=== PATIENT | female | born 1935 | race Caucasian/White ===

== ENCOUNTER → 2018-03-08 12:12 | Outpatient (CLI) | payer MEDICARE, SELFPAY ==
--- NOTE | 2018-03-08 12:30 | DI.US.S_ITS ---
PROCEDURE: US ABDOMEN COMPLETE INDICATIONS: CHANGE OF BOWEL HABITS, HISTORY OF RENAL CANCER TECHNIQUE: Real-time scanning was performed of the abdominal and retroperitoneal organs, with image documentation. COMPARISON: [facility], US, ABDOMEN COMPLETE, 12/14/2009, 9:28. [facility], US, ABDOMEN COMPLETE, 10/07/2016, 8:40. FINDINGS: Liver: Liver is normal in size and homogeneous in echotexture. 7 x 9 x 10 mm cyst in the left lobe is unchanged. Gallbladder: Gallbladder is surgically absent. Biliary ducts: Intrahepatic bile ducts are non-dilated. Extrahepatic bile duct caliber measures 6 mm. Normal is 6-7 mm or less in diameter, or 10 mm or less post-cholecystectomy. Pancreas: Visualized portions of the pancreas are sonographically normal. Spleen: Spleen is normal in size and homogeneous in echotexture. Kidneys: Kidneys are normal in size and echotexture. Right kidney measures 10.5 cm long; left kidney measures 8.9 cm long, status post partial left nephrectomy for prior tumor. Lower pole of the right kidney is not well-seen on this exam secondary to overlying bowel gas. The left kidney is best seen on coronal imaging. No hydronephrosis or nephrolithiasis. Aorta: Visualized aorta is normal in caliber at less than 3 cm. Iliacs: Proximal common iliac arteries are normal in caliber at less than 2.5 cm. IVC: Intrahepatic inferior vena cava is patent. Miscellaneous: No free abdominal fluid. IMPRESSION: 1. Stable 1 cm left lobe hepatic cyst. 2. Status post cholecystectomy with normal common bile duct 3. Status post partial left nephrectomy. Suboptimal imaging of the kidneys. Dictated by: Rajesh Barriga M.D. on 03/08/2018 at 13:16 Approved by: Rajesh Barriga M.D. on 03/08/2018 at 13:28
== END ==
PROVIDERS: PCP Physician Assistant; Visit Provider Physician Assistant
DX: R19.4 Change in bowel habit (principal); Z85.53 Personal history of malignant neoplasm of renal pelvis
CPT/HCPCS: 76700

== ENCOUNTER → 2018-05-02 11:10 | Outpatient (CLI) | payer MEDICARE, SELFPAY ==
[2018-05-02 11:43] LABS: Estimated Glomerular Filt Rate 59.9 mL/min (>60)
== END ==
PROVIDERS: PCP Physician Assistant; Visit Provider Internal Medicine Gastroenterology
DX: R19.4 Change in bowel habit (principal)
CPT/HCPCS: 36415; 82565

== ENCOUNTER 2018-05-28 09:16 | Emergency (ER) | payer MEDICARE, SELFPAY ==
[2018-05-28 09:30] VITALS: BP 147/66; PULSE 69; RESP 16; TEMP 36.4; O2SAT 97
--- NOTE | 2018-05-28 09:34 | ED.LOWEXIN ---
HPI - Extremity Injury (Lower) General Chief Complaint: Extremity Injury, Lower Stated Complaint: SAYS SHE HAS BLOOD CLOTS IN RIGHT LEG Time Seen by Provider: 05/28/18 09:33 Source: patient Mode of arrival: ambulatory Limitations: no limitations History of Present Illness HPI Narrative: Patient is an 82-year-old female here for evaluation of right lower extremity pain. Patient states that overnight she was woken up from sleep with pain in the front part of her right lower extremity. She states she took an aspirin at home prior to arrival. She states that she is still having pain however it has improved since last evening. She states that the pain feels similar to when she was diagnosed with a DVT. She is not currently on any anticoagulation. Denies chest pain or shortness of breath. Denies trauma. Related Data Home Medications Medication Instructions Recorded Confirmed [HERBAL SUPPLEMENTS] 1 dose PO QDAY #0 03/08/13 05/28/18 fexofenadine 180 mg PO QDAY #0 11/08/17 05/28/18 diphenhydramine 25 mg tablet 25 mg PO BEDTIME PRN 03/05/18 05/28/18 fluorometholone 1 drp OPHTHALMIC (EYE) DIRECTED 05/28/18 05/28/18 Previous Rx's Medication Instructions Recorded lisinopril 10 mg PO QDAY #90 tab 11/23/17 Allergies Allergy/AdvReac Type Severity Reaction Status Date / Time Penicillins [PENICILLINS] Allergy Severe RASH/ITCHIN Unverified 03/05/18 13:05 G Tetanus Vaccines and Toxoid Allergy Mild SWELLING Unverified 03/05/18 13:05 [TETANUS VACCINES & TOXOID] AND ITCHING Review of Systems Constitutional Denies fever(s) ENT Ears, Nose, Mouth, and Throat: Denies vertigo and Denies dizziness Cardiovascular Denies chest pain, Denies syncope, Denies edema, Denies claudication, Denies leg ulcers, Denies leg edema, Denies palpitations and Denies dyspnea Respiratory Denies cough and Denies dyspnea Gastrointestinal Gastrointestinal: Denies abdominal pain Musculoskeletal Denies abnormal gait, Denies myalgias and Denies arthralgias Comments: Right anterior bowman pain Integumentary/Breasts Denies lesions and Denies rash Neurologic Denies abnormal gait, Denies vertigo, Denies dizziness and Denies syncope Endocrine Denies palpitations Hematologic/Lymphatic Denies easy bleeding and Denies easy bruising [facility] Medical History Essential hypertension (Chronic 01/18/11) Hyperlipidemia (Chronic 01/18/11) Osteopenia (Chronic) History of malignant neoplasm of kidney (Resolved 01/18/11) Arthritis (Chronic Unknown) 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 Mother No problems noted. Grandfather No problems noted. Grandmother No problems noted. Grandfather No problems noted. Grandmother Cancer Social History Smoking Status: Never smoker Exam Initial Vital Signs Initial Vital Signs: Vital Signs Temperature 97.6 F 05/28/18 09:30 Pulse Rate 69 05/28/18 09:30 Respiratory Rate 16 05/28/18 09:30 Blood Pressure 147/66 H 05/28/18 09:30 Pulse Oximetry 97 05/28/18 09:30 Const General: cooperative, healthy appearing, comfortable, well developed, well groomed and No acute distress Orientation: alert, awake and oriented x3 [facility] Head: normal to inspection and normocephalic Resp Effort & Inspection: normal respiratory effort Skin Lesions: no lesions Rashes: no rashes Neuro General: alert, awake and oriented x3 Gait: normal gait Sensory Exam: no sensory deficits noted Extrem General: full ROM and capillary refill normal Other: Patient with multiple bilateral lower extremity varicose veins. No gross deformities. No tenderness to palpation on the right calf muscle. Psych Appearance: grossly normal and well kempt Course Orders Ordered: ED Orders 05/28/18 09:47 US perip venous low extrem rt Stat Vital Signs - 8 hr 05/28/18 09:30 05/28/18 09:49 Temperature 97.6 F Pulse Rate 69 Pulse Rate [Right Dorsalis Pedis] 72 Respiratory Rate 16 Blood Pressure 147/66 H Pulse Oximetry 97 MDM - Extremity Injury (Lower) Medical Records Attestation: I reviewed the patient's medical records. Imaging Data Venous US: Radiologist's impression: [address] [address] Ultrasound Report Signed Patient: Jenny Ramirez GMR#: [id number] : 6Acct:[id number] Age/Sex: 82 / FDate of Service: 05/28/18 Loc: ED Accession Number: [id number] Procedure: US perip venous low extrem rt Ordering Provider: Jonh Fink D.O. PROCEDURE: US PERIP VENOUS LOW EXTREM RT INDICATIONS: RLE pain with hx of DVT feels like same. TECHNIQUE: Real-time imaging, as well as color and pulse Doppler interrogation, were performed of the lower extremity deep veins from the inguinal ligament to the popliteal fossa. COMPARISON: [facility], , PVE UNILATERAL RIGHT, 02/19/2014, 13:11. FINDINGS: The deep veins are normally compressible, and free of intraluminal thrombus. Color and pulse Doppler demonstrate normal phasic intraluminal flow. There is normal augmentation response to distal compression maneuver. IMPRESSION: Negative for deep venous thrombosis. Dictated by: Peter Holland M.D. on 05/28/2018 at 10:44 Approved by: Peter Holland M.D. on 05/28/2018 at 10:45 [facility] Narrative Medical decision making narrative: No signs of DVT on the patient's ultrasound. Physical exam is not consistent with cellulitis. Is neurovascularly intact. Had a long discussion with the patient regarding the symptoms. sHe was given return precautions. Patient expressed understanding and agreement plan. Suspect musculoskeletal etiology. Discharge Plan Departure Patient Disposition: Home Clinical Impression: Leg pain, right Instructions: How To Perform RICE (Rest, Ice, Compress, Elevate) Activity Restrictions/Additional Instructions: Call your primary care doctor for a follow-up. Return to the emergency department for any new or worsening symptoms. Prescriptions: No Action diphenhydramine HCl [Benadryl Allergy] 25 mg tablet 25 mg PO BEDTIME PRN (Reason: Sleep) RF: 0 [HERBAL SUPPLEMENTS] 1 dose PO QDAY Qty: 0 RF: 0 fexofenadine 180 MG tablet 180 mg PO QDAY Qty: 0 RF: 0 lisinopril 10 MG tablet 10 mg PO QDAY Qty: 90 RF: 3 fluorometholone 0.1 % drops,suspension 1 drp ophthalmic (eye) DIRECTED RF: 0
--- NOTE | 2018-05-28 09:47 | DI.US.S_ITS ---
PROCEDURE: US PERIPH VENOUS LOW EXTREM RT INDICATIONS: RLE pain with hx of DVT feels like same. TECHNIQUE: Real-time imaging, as well as color and pulse Doppler interrogation, were performed of the lower extremity deep veins from the inguinal ligament to the popliteal fossa. COMPARISON: [facility], , PVE UNILATERAL RIGHT, 02/19/2014, 13:11. FINDINGS: The deep veins are normally compressible, and free of intraluminal thrombus. Color and pulse Doppler demonstrate normal phasic intraluminal flow. There is normal augmentation response to distal compression maneuver. IMPRESSION: Negative for deep venous thrombosis. Dictated by: Peter Holland M.D. on 05/28/2018 at 10:44 Approved by: Peter Holland M.D. on 05/28/2018 at 10:45
[2018-05-28 09:49] VITALS: PULSE 72
[2018-05-28 12:04] VITALS: BP 140/78; PULSE 70; RESP 14; O2SAT 99
== END 2018-05-28 12:06 | disposition home or self-care (01) ==
PROVIDERS: Emergency Provider Emergency Medicine; PCP Physician Assistant
DX: M79.604 Pain in right leg (principal)
CPT/HCPCS: 93971; 99282; 99284

== ENCOUNTER → 2018-12-06 12:17 | Outpatient (CLI) | payer MEDICARE, SELFPAY ==
[2018-12-06 13:21] LABS: Alanine Aminotransferase 35 IU/L (9-52); Albumin 4.5 g/dL (3.5-5.0); Albumin Globulin Ratio 1.6 (1.0-2.8); Alkaline Phosphatase 105 U/L (38-126); Aspartate Aminotransferase 33 IU/L (14-36); Bilirubin Total 0.8 mg/dL (0.2-1.3); Blood Urea Nitrogen 18 mg/dL (7-17); Calcium 10.2 mg/dL (8.4-10.2); Carbon Dioxide 32 mmol/L (22-32); Chloride 97 mmol/L (98-107); Estimated Glomerular Filt Rate 59.8 mL/min (>60); Globulin 2.8 g/dL (1.7-4.1); Glucose 77 mg/dL (80-110); HEMOLYSIS < 15 (0-50); Sodium 139 mmol/L (137-145); Total Protein 7.3 g/dL (6.3-8.2)
== END ==
PROVIDERS: PCP Physician Assistant; Visit Provider Physician Assistant
DX: I10 Essential (primary) hypertension (principal)
CPT/HCPCS: 36415; 80053

== ENCOUNTER → 2019-09-24 10:30 | Outpatient (CLI) | payer MEDICARE, SELFPAY ==
[2019-09-24 12:06] LABS: Alanine Aminotransferase 24 IU/L (<35); Albumin 4.6 g/dL (3.5-5.0); Albumin Globulin Ratio 1.7 (1.0-2.8); Alkaline Phosphatase 98 U/L (38-126); Aspartate Aminotransferase 32 IU/L (14-36); BUN Creatinine Ratio 22.2 (6-22); Bilirubin Total 0.9 mg/dL (0.2-1.3); Blood Urea Nitrogen 20 mg/dL (7-17); Calcium 10.2 mg/dL (8.4-10.2); Carbon Dioxide 30 mmol/L (22-32); Chloride 100 mmol/L (98-107); Estimated Glomerular Filt Rate 59.8 mL/min (>60); Globulin 2.7 g/dL (1.7-4.1); Glucose 76 mg/dL (80-110); HEMOLYSIS < 15 (0-50); Potassium 4.6 mmol/L (3.4-5.1); Sodium 141 mmol/L (137-145); Total Protein 7.3 g/dL (6.3-8.2)
[2019-09-24 12:22] LABS: Vitamin D 25 Hydroxy (D3) 122 ng/mL (30.0-100.0)
[2019-09-24 15:33] LABS: Creatinine Urine Random 108.4 mg/dL
[2019-09-24 15:37] LABS: Microalbumi Creatinin Ratio Ur 6.4 ug/mg CR (<30); Microalbumin Urine Random 0.7 mg/dL (0-1.6)
== END ==
PROVIDERS: PCP Physician Assistant; Visit Provider Physician Assistant
DX: E78.5 Hyperlipidemia, unspecified (principal); I10 Essential (primary) hypertension; M81.0 Age-related osteoporosis without current pathological fracture
CPT/HCPCS: 36415; 80053; 82043; 82306; 82570

== ENCOUNTER → 2019-09-26 10:06 | Outpatient (CLI) | payer MEDICARE, SELFPAY ==
--- NOTE | 2019-09-26 10:08 | DI.US.S_ITS ---
PROCEDURE: US RENAL COMPLETE INDICATIONS: HISTORY LEFT KIDNEY CANCER; FOLLOW-UP TECHNIQUE: Real-time scanning was performed of the kidneys and bladder, with image documentation. COMPARISON: [facility], US, US ABDOMEN COMPLETE, 03/08/2018, 12:34. [facility], CT, KIDNEY/ URETER/BLADDER, 03/08/2013, 13:28. Merged With [facility], CT, CT ABDOMEN PELVIS WITH CONTRAST, 05/03/2018, 11:54. FINDINGS: Kidneys: Kidneys are normal in size. Right kidney measures 10.8 cm long; left kidney measures 8.9 cm long. Right renal cortical thickness is 1.3 cm; left renal cortical thickness is 1.2 cm. Renal cortical echotexture is normal. No hydronephrosis or nephrolithiasis. There is a scar in the inferior pole of left kidney. No suspicious solid mass lesions. Bladder: Pre-void bladder volume is 98-121 mL. The patient was unable to void. Pre-void images demonstrate no intraluminal masses or stones. On pre-void images, neither ureteral jets are noted with color Doppler interrogation. (Of note, ureteral jets may not be detectable in up to 25% of cases due to insufficient differences in specific gravity between ureteral and bladder urine). Miscellaneous: No free pelvic fluid. IMPRESSION: 1. Left inferior pole renal cortical scar. No recurrent mass is identified. 2. The patient was unable to void. Dictated by: Nakul Velasquez M.D. on 09/26/2019 at 11:48 Approved by: Nakul Velasquez M.D. on 09/26/2019 at 11:55
== END ==
PROVIDERS: PCP Physician Assistant; Visit Provider Physician Assistant
DX: Z08 Encounter for follow-up examination after completed treatment for malignant neoplasm (principal); Z85.528 Personal history of other malignant neoplasm of kidney
CPT/HCPCS: 76770

== ENCOUNTER → 2020-10-13 15:54 | Outpatient (CLI) | payer MEDICARE, SELFPAY ==
[2020-10-13] MEDS: COVID-19 VACC #1, MRNA(MOD) 100 MCG/0.5 ML VIAL IM (16:14)
== END ==
PROVIDERS: PCP Nurse Practitioner; Visit Provider Internal Medicine
DX: Z23 Encounter for immunization (principal)
CPT/HCPCS: 0011A; 91301

== ENCOUNTER → 2020-11-10 16:09 | Outpatient (CLI) | payer MEDICARE, SELFPAY ==
[2020-11-10] MEDS: COVID-19 VACC #2, MRNA(MOD) 100 MCG/0.5 ML VIAL IM (16:18)
== END ==
PROVIDERS: PCP Nurse Practitioner; Visit Provider Internal Medicine
DX: Z23 Encounter for immunization (principal)
CPT/HCPCS: 0012A; 91301

== ENCOUNTER → 2021-03-09 09:31 | Outpatient (CLI) | payer MEDICARE, SELFPAY ==
[2021-03-09 11:30] LABS: Alanine Aminotransferase 27 IU/L (<35); Albumin 3.9 g/dL (3.5-5.0); Albumin Globulin Ratio 1.5 (1.0-2.8); Alkaline Phosphatase 113 U/L (38-126); Aspartate Aminotransferase 28 IU/L (14-36); BUN Creatinine Ratio 18.9 (6-22); Blood Urea Nitrogen 18 mg/dL (7-17); Calcium 9.7 mg/dL (8.4-10.2); Carbon Dioxide 30 mmol/L (22-32); Chloride 102 mmol/L (98-107); Estimated Glomerular Filt Rate 55.9 mL/min (>60); Globulin 2.6 g/dL (1.7-4.1); Glucose 103 mg/dL (80-110); HEMOLYSIS < 15 (0-50); Potassium 4.3 mmol/L (3.4-5.1); Sodium 140 mmol/L (137-145); Total Protein 6.5 g/dL (6.3-8.2)
[2021-03-09 11:32] LABS: Microalbumin Urine Random 2.9 mg/dL (0-1.6)
[2021-03-09 11:37] LABS: Creatinine Urine Random 92.6 mg/dL; Microalbumi Creatinin Ratio Ur 31.3 ug/mg CR (<30)
[2021-03-09 11:46] LABS: Bilirubin Total 0.9 mg/dL (0.2-1.3)
[2021-03-09 12:31] LABS: Thyroid Stimulating Hormone 0.042 uIU/mL (0.47-4.68)
[2021-03-09 18:06] LABS: Free T3, Triiodothyronine Free 3.78 pg/mL (2.77-5.27)
== END ==
PROVIDERS: PCP Nurse Practitioner; Referring Provider Nurse Practitioner; Visit Provider Nurse Practitioner
DX: I10 Essential (primary) hypertension (principal); R53.83 Other fatigue; Z79.899 Other long term (current) drug therapy
CPT/HCPCS: 36415; 80053; 82043; 82570; 84439; 84443; 84481

== ENCOUNTER → 2021-03-18 10:13 | Outpatient (CLI) | payer MEDICARE, SELFPAY | PROVIDERS: PCP Nurse Practitioner; Referring Provider Nurse Practitioner; Visit Provider Nurse Practitioner | DX: M81.0 Age-related osteoporosis without current pathological fracture (principal); Z78.0 Asymptomatic menopausal state; Z82.62 Family history of osteoporosis | CPT/HCPCS: 77080 ==

== ENCOUNTER → 2021-11-23 12:05 | Outpatient (CLI) | payer MEDICARE, SELFPAY ==
--- NOTE | 2021-11-23 12:07 | DI.US.S_ITS ---
PROCEDURE: US RENAL COMPLETE INDICATIONS: 1 year surveillance, h/o left kidney cancer TECHNIQUE: Real-time scanning was performed of the kidneys and bladder, with image documentation. COMPARISON: [facility], , RENAL COMPLETE, 09/26/2019, 10:14. FINDINGS: Kidneys: Right kidney measures 11.4 cm long; left kidney measures 8.4 cm long. Redemonstration of postsurgical changes of the inferior pole of the left kidney. Right renal cortical thickness is 1.2 cm; left renal cortical thickness is 1.1 cm. Renal cortical echotexture is normal. No hydronephrosis or nephrolithiasis. No suspicious solid mass lesions. Small right renal cyst measuring 0.6 cm. Bladder: Pre-void bladder volume is 35 mL. Post-void residual is 0 mL. Limited prevoid images demonstrate no intraluminal masses or stones (urinary bladder was incompletely distended). On pre-void images, the right ureteral jet was not visualized. The left ureteral jet was seen. ureteral jets are noted with color Doppler interrogation. (Of note, ureteral jets may not be detectable in up to 25% of cases due to insufficient differences in specific gravity between ureteral and bladder urine). Miscellaneous: No free pelvic fluid. IMPRESSION: 1. Stable appearance of left inferior pole renal scar. No evidence for recurrent mass lesions. 2. No evidence for hydronephrosis. 3. Limited evaluation of the urinary bladder secondary to incomplete distension. No gross abnormality seen. Dictated by: Andrew Heard M.D. on 11/23/2021 at 14:30 Approved by: Andrew Heard M.D. on 11/23/2021 at 14:34
== END ==
PROVIDERS: PCP Nurse Practitioner; Referring Provider Nurse Practitioner; Visit Provider Nurse Practitioner
DX: Z85.528 Personal history of other malignant neoplasm of kidney (principal); Z08 Encounter for follow-up examination after completed treatment for malignant neoplasm
CPT/HCPCS: 76770

== ENCOUNTER 2022-02-02 11:11 | Emergency (ER) | payer MEDICARE, SELFPAY ==
[2022-02-02] VITALS (11 sets, daily range): BP systolic 124–166; BP diastolic 60–119; PULSE 61–82; RESP 17–25; TEMP 36.6; O2SAT 93–100; BMI 19.3
--- NOTE | 2022-02-02 11:22 | DI.RAD.S_ITS ---
PROCEDURE: XR CHEST 1V INDICATIONS: chest pain TECHNIQUE: One view of the chest was acquired. COMPARISON: None. FINDINGS: Surgical changes and devices: None. Lungs and pleura: Lungs are clear. No pleural effusions or pneumothorax. Mediastinum: Tortuous thoracic aorta with aortic arch calcification is seen. Heart size is enlarged. Bones and chest wall: No suspicious bony lesions. Overlying soft tissues appear unremarkable. IMPRESSION: No acute cardiopulmonary pathology. Dictated by: Humphrey Gross M.D. on 02/02/2022 at 11:46 Approved by: Humphrey Gross M.D. on 02/02/2022 at 11:46
[2022-02-02 11:48] LABS: Add Manual Diff / Slide Review NO; Basophils Absolute Auto 100 /uL (0-100); Basophils Percent Auto 0.7 % (0-2); Eosinophils Absolute Auto 100 /uL (0-450); Eosinophils Percent Auto 1.7 % (2-4); Hematocrit 42.4 % (36-46); Hemoglobin 14.3 g/dL (12.0-16.0); Lymphocytes Absolute Auto 2300 /uL (1100-4500); Lymphocytes Percent Auto 27.1 % (25-40); Mean Corpuscular HGB Conc 33.8 % (30-36); Mean Corpuscular Volume 94.6 fL (80-100); Monocytes Absolute Auto 600 /uL (0-900); Monocytes Percent Auto 7.3 % (3-14); Neutrophils Absolute Auto 5200 /uL (1500-7000); Neutrophils Percent Auto 63.2 % (50-75); Platelet Count 229 X10^3/uL (150-400); Red Blood Cell Count 4.48 X10^6/uL (4.0-5.2); Red Cell Distribution Width 13.8 % (11.6-14.8); White Blood Cell Count 8.3 X10^3/uL (4.5-11.0)
[2022-02-02 12:12] LABS: Alanine Aminotransferase 20 IU/L (<35); Albumin 4.2 g/dL (3.5-5.0); Albumin Globulin Ratio 1.4 (1.0-2.8); Alkaline Phosphatase 97 U/L (38-126); Aspartate Aminotransferase 27 IU/L (14-36); BUN Creatinine Ratio 20.7 (6-22); Bilirubin Total 0.8 mg/dL (0.2-1.3); Blood Urea Nitrogen 19 mg/dL (7-17); Calcium 9.4 mg/dL (8.4-10.2); Carbon Dioxide 32 mmol/L (22-32); Chloride 103 mmol/L (98-107); Creatine Kinase 37 U/L (30-135); Estimated Glomerular Filt Rate > 60 mL/min (>60); Glucose 133 mg/dL (80-110); HEMOLYSIS < 15 (0-50); Lipase 271 U/L (23-300); Magnesium 2.3 mg/dL (1.6-2.3); Potassium 4.4 mmol/L (3.4-5.1); Sodium 140 mmol/L (137-145); Total Protein 7.2 g/dL (6.3-8.2)
[2022-02-02 12:13] LABS: Prothrombin Time 11.2 SECONDS (10.1-12.7)
--- NOTE | 2022-02-02 12:15 | ED_ITS ---
HPI - Chest Pain General Chief Complaint: Chest Pain Stated Complaint: Chest pain after fall 10 days ago Time Seen by Provider: 02/02/22 12:15 Source: patient and family () Mode of arrival: Wheelchair Limitations: no limitations History of Present Illness HPI narrative: This is an 86-year-old female who presents with sore pain. Patient states 2 weeks ago she was trying to clean the window over her sink and was on a stepladder in an awkward position, the sink in the corner of the kitchen. She fell striking her chest on the counter top. Patient states it is made of tile. She has had pain persistently since then but intermittent intensity. Today she sat down to put on her shoes got up went to the bedroom sat down and pain became much more intense than it has been and has been persisting. Patient states it is quite painful to take a deep breath, she denies any syncope. She states knee Zing, coughing are painful. She denies any other injuries or pain elsewhere. Pain does not radiate to her neck, arms or abdomen. She states lifting or moving her arms makes it worse. She denies fevers or chills. No nausea or vomiting. No issues with bowel movement. She did not appreciate any bruising after the initial injury. 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 This was found because she worked for [employer] and they offered as a voluntary test for research purposes. Patient denies any tobacco, alcohol or illicit. She lives independently with her . Her primary care is Seda arvizu. She did try ibuprofen about 3 hours prior. Related Data Home Medications Medication Instructions Recorded Confirmed [HERBAL SUPPLEMENTS] 1 dose PO QDAY #0 03/08/13 05/11/21 fexofenadine 180 mg tablet 180 mg PO QDAY #0 11/08/17 05/11/21 diphenhydramine HCl 25 mg tablet 25 mg PO BEDTIME PRN 03/05/18 05/11/21 (Benadryl Allergy) fluorometholone 0.1 % eye 1 drp OPHTHALMIC (EYE) DIRECTED 05/28/18 05/11/21 drops,suspension algeacal See Rx Instructions .ROUTE .COMPLEX 05/11/21 05/11/21 strontium gluconate-vitamins 2 tab PO tab 05/11/21 05/11/21 [id number] acid 680 mg-30 mg tablet Previous Rx's Medication Instructions Recorded denosumab 60 mg/mL subcutaneous 60 mg SUBCUT [id number] #1 ml 07/20/21 syringe (Prolia) lisinopril 10 mg tablet 10 mg PO QDAY #90 tab 11/23/21 ibuprofen 600 mg tablet 600 mg PO Q6H PRN #20 tab 02/02/22 Allergies Allergy/AdvReac Type Severity Reaction Status Date / Time Penicillins [PENICILLINS] Allergy Severe RASH/ITCHIN Verified 02/02/22 11:22 G Tetanus Vaccines and Toxoid Allergy Mild SWELLING Verified 02/02/22 11:22 [TETANUS VACCINES & TOXOID] AND ITCHING 2D6 deficiency Allergy Uncoded 02/02/22 15:40 Beta blockers AdvReac Unknown Has 2D6 Uncoded 05/11/21 11:39 deficiency Review of Systems Review of Systems ROS Unobtainable: All systems reviewed & are unremarkable except as noted in HPI and below Patient History Medical History Arthritis (Unknown) Basal cell carcinoma (10/2017) 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 Mother No problems noted. Grandfather No problems noted. Grandmother No problems noted. Grandfather No problems noted. Grandmother Cancer Social History Smoking Status: Never smoker Smoking Status: Never smoker alcohol intake frequency: holidays/special occasions only Substance Use Type: does not use Exam Narrative Exam Narrative: GEN: Thin, elderly female who appears in mild distress. HEAD: No evidence of trauma, no raccoon/Baron sign. NECK: Nontender, painless range of motion, trachea midline Negative for Nexus criteria, there is no midline line tenderness, distracting injury, altered mental status, neuro deficit, recent EtOH. EYES: PERRLA, EOMI ENT: External inspection normal, trachea is midline, Nares are clear, airway is normal and with normal occlusion, No bony tenderness RESP: Chest is tender to palpation. No obvious ecchymosis. She has symmetric movement, no ecchymosis, breath sounds are normal no crackles, wheezes or rales, no tachypnea accessory muscle use. CVS: Heart sounds are normal, no murmur noted, No JVD. ABG/GI: Nontender, soft, normal bowel sounds, no distention, no organomegaly, pelvic rock is negative NEURO: Oriented AOx3, neuro is grossly intact, sensation and motor is normal all 4 extremities moving, cranial nerves II through XII are intact, GCS is 15 PSYCH: Normal mood and affect SKIN: Intact, warm and dry, no crepitus and without decubitus BACK: No CVA tenderness, no vertebral tenderness, no step-off's, no crepitus EXT: Atraumatic, hips are nontender, no pedal edema, normal color and temperature, normal range of motion of extremities with normal tendon exam, 2+ pulses in all four extremities Initial Vital Signs Initial Vital Signs: Vital Signs Temperature 97.9 F 02/02/22 11:18 Pulse Rate 68 02/02/22 11:18 Respiratory Rate 25 H 02/02/22 11:18 Blood Pressure 153/119 H 02/02/22 11:18 Pulse Oximetry 98 02/02/22 11:18 Course Orders Ordered: ED Orders 02/02/22 11:22 XR chest 1V Stat EKG-12 Lead Stat 02/02/22 11:29 Complete Blood Count AUTO DIFF Stat Comprehensive Metabolic Panel Stat Lipase Stat Magnesium Stat Partial Thromboplastin Time Stat Prothrombin Time INR Stat Troponin & CK Cardiac Panel Stat 02/02/22 12:34 CT chest w con Stat 02/02/22 14:25 Trop I [Troponin I] Stat Vital Signs Vital signs: Vital Signs - 8 hr 02/02/22 11:18 02/02/22 11:19 02/02/22 11:20 Temperature 97.9 F Pulse Rate 68 68 Respiratory Rate 25 H Blood Pressure 153/119 H 153/119 H Pulse Oximetry 98 97 02/02/22 11:30 02/02/22 12:00 02/02/22 12:30 Temperature Pulse Rate 66 61 62 Respiratory Rate 17 18 17 Blood Pressure Pulse Oximetry 98 97 93 02/02/22 12:52 02/02/22 13:00 02/02/22 13:30 Temperature Pulse Rate 70 68 73 Respiratory Rate 18 21 19 Blood Pressure 150/65 H 137/63 124/62 Pulse Oximetry 98 99 96 02/02/22 14:00 02/02/22 15:37 Temperature Pulse Rate 75 82 Respiratory Rate 18 Blood Pressure 132/60 166/72 H Pulse Oximetry 98 100 MDM - Chest Pain Lab Data Result diagrams: 02/02/22 11:29 02/02/22 11:29 Labs: Lab Results 02/02/22 02/02/22 02/02/22 Range/Units 11:29 11:29 11:29 WBC 8.3 (4.5-11.0) X10^3/uL RBC 4.48 (4.0-5.2) X10^6/uL Hgb 14.3 (12.0-16.0) g/dL Hct 42.4 (36-46) % MCV 94.6 (80-100) fL MCH 32.0 (26-34) PG MCHC 33.8 (30-36) % RDW 13.8 (11.6-14.8) % Plt Count 229 (150-400) X10^3/uL Neut % (Auto) 63.2 (50-75) % Lymph % (Auto) 27.1 (25-40) % [place] % (Auto) 7.3 (3-14) % Eos % (Auto) 1.7 L (2-4) % Baso % (Auto) 0.7 (0-2) % Neut # (Auto) 5200 (2730-6091) /uL Lymph # (Auto) 2300 (7658-6409) /uL [place] # (Auto) 600 (0-900) /uL Eos # (Auto) 100 (0-450) /uL Baso # (Auto) 100 (0-100) /uL PT 11.2 (10.1-12.7) SECONDS INR 1.0 (0.9-1.3) APTT 28 (26.4-36.2) SECONDS Sodium 140 (137-145) mmol/L Potassium 4.4 (3.4-5.1) mmol/L Chloride 103 (98-107) mmol/L Carbon Dioxide 32 (22-32) mmol/L BUN 19 H (7-17) mg/dL Creatinine 0.92 (0.52-1.04) mg/dL Estimated GFR > 60 (>60) mL/min BUN/Creatinine Ratio 20.7 (6-22) Glucose 133 H (80-110) mg/dL Calcium 9.4 (8.4-10.2) mg/dL Magnesium 2.3 (1.6-2.3) mg/dL Total Bilirubin 0.8 (0.2-1.3) mg/dL AST 27 (14-36) IU/L ALT 20 (<35) IU/L Alkaline Phosphatase 97 (38-126) U/L Total Creatine Kinase 37 (30-135) U/L CK-MB (CK-2) TNP CK-MB (CK-2) Rel Index TNP Troponin I < 0.012 (0.01-0.034) ng/mL Total Protein 7.2 (6.3-8.2) g/dL Albumin 4.2 (3.5-5.0) g/dL Globulin 3.0 (1.7-4.1) g/dL Albumin/Globulin Ratio 1.4 (1.0-2.8) Lipase 271 (23-300) U/L 02/02/22 Range/Units 14:25 WBC (4.5-11.0) X10^3/uL RBC (4.0-5.2) X10^6/uL Hgb (12.0-16.0) g/dL Hct (36-46) % MCV (80-100) fL MCH (26-34) PG MCHC (30-36) % RDW (11.6-14.8) % Plt Count (150-400) X10^3/uL Neut % (Auto) (50-75) % Lymph % (Auto) (25-40) % [place] % (Auto) (3-14) % Eos % (Auto) (2-4) % Baso % (Auto) (0-2) % Neut # (Auto) (7043-3533) /uL Lymph # (Auto) (5296-7417) /uL [place] # (Auto) (0-900) /uL Eos # (Auto) (0-450) /uL Baso # (Auto) (0-100) /uL PT (10.1-12.7) SECONDS INR (0.9-1.3) APTT (26.4-36.2) SECONDS Sodium (137-145) mmol/L Potassium (3.4-5.1) mmol/L Chloride (98-107) mmol/L Carbon Dioxide (22-32) mmol/L BUN (7-17) mg/dL Creatinine (0.52-1.04) mg/dL Estimated GFR (>60) mL/min BUN/Creatinine Ratio (6-22) Glucose (80-110) mg/dL Calcium (8.4-10.2) mg/dL Magnesium (1.6-2.3) mg/dL Total Bilirubin (0.2-1.3) mg/dL AST (14-36) IU/L ALT (<35) IU/L Alkaline Phosphatase (38-126) U/L Total Creatine Kinase (30-135) U/L CK-MB (CK-2) CK-MB (CK-2) Rel Index Troponin I < 0.012 (0.01-0.034) ng/mL Total Protein (6.3-8.2) g/dL Albumin (3.5-5.0) g/dL Globulin (1.7-4.1) g/dL Albumin/Globulin Ratio (1.0-2.8) Lipase (23-300) U/L Imaging Data Chest x-ray: Radiologist's Impression: Launch?[address] [address] XRay Report Signed Patient: Jenny Ramirez MR#: [id number] : 1935 Acct:[id number] Age/Sex: 86 / F Date of Service: 02/02/22 Loc: ED Accession Number: [id number] ?? Procedure: XR chest 1V Ordering Provider: Aria Almanza D.O. PROCEDURE:? XR CHEST 1V ? INDICATIONS:? chest pain ? TECHNIQUE:? One view of the chest was acquired.? ? COMPARISON:? None. ? FINDINGS:? ? Surgical changes and devices:? None.? ? Lungs and pleura:? Lungs are clear.? No pleural effusions or pneumothorax.? ? Mediastinum:? Tortuous thoracic aorta with aortic arch calcification is seen.? Heart size is enlarged. ? Bones and chest wall:? No suspicious bony lesions.? Overlying soft tissues appear unremarkable.? ? IMPRESSION:? No acute cardiopulmonary pathology. ? ? Dictated by: Humphrey Gross M.D. on 02/02/2022 at 11:46 ? ? Approved by: Humphrey Gross M.D. on 02/02/2022 at 11:46?? CT scan - chest: Radiologist's Impression: Launch?[place] [address] CT Scan Report Signed Patient: Jenny Ramirez MR#: [id number] : 1935 Acct:[id number] Age/Sex: 86 / F Date of Service: 02/02/22 Loc: ED Accession Number: [id number] ?? Procedure: CT chest w con Ordering Provider: Aria Almanza D.O. PROCEDURE:? CT CHEST W CON ? INDICATIONS:? sternal pain, fall 2 weeks ago, worse ? TECHNIQUE:? After the administration of intravenous contrast, 5 mm thick sections acquired from the pulmonary apices to the posterior costophrenic angles.? 1 mm axial lung, 5 mm thick coronal and sagittal reformats and 7 mm axial MIP were acquired.? For radiation dose reduction, the following was used:? automated exposure control, adjustment of mA and/or kV according to patient size.? ? COMPARISON:? None. ? FINDINGS:? Image quality:? Excellent.? ? Lungs and pleura:? Scattered scarring/atelectasis in periphery of bilateral mid to lower lung rm is seen.? No pleural effusions or pneumothorax.? Central and peripheral airways are patent and normal in caliber.? ? Mediastinum:? Heart size is mildly enlarged.? No pericardial effusion.? No mediastinal or hilar adenopathy by size criteria.? Thoracic aorta and central pulmonary arteries are normal in size.? Esophagus is normal in caliber.? No hiatal hernia.? ? Bones and chest wall:? No suspicious bony lesions.? No acute sternal fracture.? No displaced rib fracture.? Bilateral sternal clavicular joint osteoarthritic changes are seen slightly worse on the right side.? No vertebral body compression fractures.? 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 No axillary or supraclavicular adenopathy by size criteria.? Thyroid gland is within normal limits.? ? Abdomen:? Visualized upper abdominal solid organs appear normal.? Upper abdominal bowel loops are normal in caliber.? ? IMPRESSION:? 1. No sternal fracture.? 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 No suspicious bony lesion.? No gross displaced rib fracture.? No acute vertebral body compression fracture. 2. No mediastinal hematoma or lymphadenopathy.? 3. Scattered scarring/atelectasis in periphery of bilateral lung rm.? No pleural effusion or pneumothorax.? Airway is patent. ? ? Dictated by: Humphrey Gross M.D. on 02/02/2022 at 13:19 ? ? Approved by: Humphrey Gross M.D. on 02/02/2022 at 13:31 ECG Data Attestation: I personally reviewed and interpreted this ECG as follows: Prior ECG tracings: available for review Interpretation: Sinus rhythm, rate of 65 [place] 160 QRS 80 QTC of 405. No acute ST elevation or depression noted. No priors available for comparison. EKG 2. Sinus rhythm rate of 76, P are 154 QRS 84 QTC 432. [place] 3 and AVF compared different. No other acute changes noted. MDM Narrative Medical decision making narrative: This is an 86-year-old elderly female comes in with complaint of persistent worsening sternal pain particularly with movement since fall 2 weeks ago. Patient's exam is reassuring that she is tender over the site. Initial chest x- ray is negative, patient's labs show no clear cause for her symptoms. She has normal EKG without acute chest findings. Patient is quite thin with a BMI of 19, she is tender on exam and CT chest was obtained she has had persistent and worsening chest pain. Patient has arthritis of the sternal clavicular joint but no other acute changes. Labs are otherwise reassuring. 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 Reviewed with pharmacist majority of oral narcotics are unavailable to patient except for Dilaudid and morphine. Patient does tolerate aspirin and ibuprofen and can take these. Reviewed findings today with the patient. She feels comfortable with this plan. 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 Your sternal bone does not have a fracture or break. The surrounding structures all are intact and look well. You may take ibuprofen up to 600 mg every 6 hours as needed for pain. [facility] [place]. Please return for worsening symptoms, passing out, new or worsening chest pain, increasing shortness of breath, passing out, new swelling in extremities, persistent vomiting or other new or concerning symptoms. Prescriptions: New ibuprofen 600 mg tablet 600 mg PO Q6H PRN (Reason: pain) Qty: 20 0RF No Action diphenhydramine HCl [Benadryl Allergy] 25 mg tablet 25 mg PO BEDTIME PRN (Reason: Sleep) 0RF [HERBAL SUPPLEMENTS] 1 dose PO QDAY Qty: 0 0RF Label Comments: PATIENT STATES TAKES SEVERAL SUPPLEMENTS. DOES NOT HAVE LIST WITH HER fexofenadine 180 MG tablet 180 mg PO QDAY Qty: 0 0RF Prolia 60 mg/mL syringe 60 mg SUBCUT [id number] Qty: 1 2RF Rx Instructions: Inject subcut every 6 months for osteoporosis. lisinopril 10 mg tablet 10 mg PO QDAY Qty: 90 3RF algeacal See Rx Instructions .ROUTE .COMPLEX 0RF Rx Instructions: 4 tabs daily containing Vitamin C 25mg, K2 50mg, D3 800iu, calcium 360mg, magnesium 175mg; strontium [id number] 680-30 mg tablet 2 tab PO 0RF fluorometholone 0.1 % drops,suspension 1 drp ophthalmic (eye) DIRECTED 0RF Referrals: Seda Arvizu ARNP [Primary Care Provider] -
[2022-02-02 12:16] LABS: PTT Partial Thromboplastin Tim 28 SECONDS (26.4-36.2)
[2022-02-02 12:23] LABS: Troponin I < 0.012 ng/mL (0.01-0.034)
--- NOTE | 2022-02-02 12:34 | DI.CT.S_ITS ---
PROCEDURE: CT CHEST W CON INDICATIONS: sternal pain, fall 2 weeks ago, worse TECHNIQUE: After the administration of intravenous contrast, 5 mm thick sections acquired from the pulmonary apices to the posterior costophrenic angles. 1 mm axial lung, 5 mm thick coronal and sagittal reformats and 7 mm axial MIP were acquired. For radiation dose reduction, the following was used: automated exposure control, adjustment of mA and/or kV according to patient size. COMPARISON: None. FINDINGS: Image quality: Excellent. Lungs and pleura: Scattered scarring/atelectasis in periphery of bilateral mid to lower lung rm is seen. No pleural effusions or pneumothorax. Central and peripheral airways are patent and normal in caliber. Mediastinum: Heart size is mildly enlarged. No pericardial effusion. No mediastinal or hilar adenopathy by size criteria. Thoracic aorta and central pulmonary arteries are normal in size. Esophagus is normal in caliber. No hiatal hernia. Bones and chest wall: No suspicious bony lesions. No acute sternal fracture. No displaced rib fracture. Bilateral sternal clavicular joint osteoarthritic changes are seen slightly worse on the right side. No vertebral body compression fractures. Degenerative disc disease throughout lower thoracic spine and upper lumbar spine vertebral bodies is seen. No axillary or supraclavicular adenopathy by size criteria. Thyroid gland is within normal limits. Abdomen: Visualized upper abdominal solid organs appear normal. Upper abdominal bowel loops are normal in caliber. IMPRESSION: 1. No sternal fracture. 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 No suspicious bony lesion. No gross displaced rib fracture. No acute vertebral body compression fracture. 2. No mediastinal hematoma or lymphadenopathy. 3. Scattered scarring/atelectasis in periphery of bilateral lung rm. No pleural effusion or pneumothorax. Airway is patent. Dictated by: Humphrey Gross M.D. on 02/02/2022 at 13:19 Approved by: Humphrey Gross M.D. on 02/02/2022 at 13:31
[2022-02-02 15:13] LABS: Troponin I < 0.012 ng/mL (0.01-0.034)
== END 2022-02-02 15:38 | disposition home or self-care (01) ==
PROVIDERS: Emergency Provider Emergency Medicine; PCP Nurse Practitioner
DX: R07.9 Chest pain, unspecified (principal); M13.88 Other specified arthritis, other site; E88.09 Other disorders of plasma-protein metabolism, not elsewhere classified
CPT/HCPCS: 36415; 71045; 71260; 80053; 82550; 83690; 83735; 84484; 85025; 85610; 85730; 93005; 93010; 99283; 99284; Q9967

== ENCOUNTER → 2022-04-11 10:10 | Outpatient (CLI) | payer MEDICARE, SELFPAY ==
[2022-04-11 11:00] LABS: Alanine Aminotransferase 19 IU/L (<35); Albumin 4.3 g/dL (3.5-5.0); Albumin Globulin Ratio 1.4 (1.0-2.8); Alkaline Phosphatase 57 U/L (38-126); Aspartate Aminotransferase 24 IU/L (14-36); BUN Creatinine Ratio 21.4 (6-22); Bilirubin Total 1.2 mg/dL (0.2-1.3); Blood Urea Nitrogen 18 mg/dL (7-17); Calcium 9.2 mg/dL (8.4-10.2); Carbon Dioxide 29 mmol/L (22-32); Chloride 101 mmol/L (98-107); Cholesterol 181 mg/dL (140-199); Estimated Glomerular Filt Rate > 60 mL/min (>60); Glucose 124 mg/dL (80-110); HDL Cholesterol 53 mg/dL (40-60); HEMOLYSIS < 15 (0-50); LDL Cholesterol Calculated 113 mg/dL (<100); Potassium 4.4 mmol/L (3.4-5.1); Sodium 138 mmol/L (137-145); Total Protein 7.3 g/dL (6.3-8.2); Triglycerides 75 mg/dL (35-150)
[2022-04-11 12:13] LABS: Vitamin D 25 Hydroxy (D3) 102 ng/mL (30.0-100.0)
[2022-04-12 16:13] LABS: Creatinine Urine Random 83.5 mg/dL
[2022-04-12 16:32] LABS: Microalbumi Creatinin Ratio Ur 10.7 ug/mg CR (<30); Microalbumin Urine Random 0.9 mg/dL (0-1.6)
== END ==
PROVIDERS: PCP Nurse Practitioner; Referring Provider Nurse Practitioner; Visit Provider Nurse Practitioner
DX: E78.5 Hyperlipidemia, unspecified (principal); E88.09 Other disorders of plasma-protein metabolism, not elsewhere classified; I10 Essential (primary) hypertension; M81.0 Age-related osteoporosis without current pathological fracture; Z85.528 Personal history of other malignant neoplasm of kidney
CPT/HCPCS: 36415; 80053; 80061; 82043; 82306; 82570

== ENCOUNTER → 2022-09-02 14:02 | Outpatient (CLI) | payer MEDICARE, SELFPAY ==
[2022-09-02 15:27] LABS: Add Manual Diff / Slide Review NO; Basophils Absolute Auto 0 /uL (0-100); Basophils Percent Auto 0.4 % (0-2); Eosinophils Absolute Auto 100 /uL (0-450); Eosinophils Percent Auto 1.4 % (2-4); Hematocrit 43.2 % (36-46); Hemoglobin 14.2 g/dL (12.0-16.0); Lymphocytes Absolute Auto 1300 /uL (1100-4500); Lymphocytes Percent Auto 13.2 % (25-40); Mean Corpuscular HGB Conc 32.8 % (30-36); Mean Corpuscular Hemoglobin 31.7 PG (26-34); Mean Corpuscular Volume 96.5 fL (80-100); Monocytes Absolute Auto 900 /uL (0-900); Monocytes Percent Auto 9.1 % (3-14); Neutrophils Absolute Auto 7500 /uL (1500-7000); Neutrophils Percent Auto 75.9 % (50-75); Platelet Count 298 X10^3/uL (150-400); Red Blood Cell Count 4.48 X10^6/uL (4.0-5.2); Red Cell Distribution Width 14.2 % (11.6-14.8); White Blood Cell Count 9.8 X10^3/uL (4.5-11.0)
[2022-09-02 16:17] LABS: Hemoglobin A1C% w Est Avg Glu 5.7 % (4.0-6.0)
[2022-09-02 16:27] LABS: Alanine Aminotransferase 33 IU/L (<35); Albumin Globulin Ratio 1.5 (1.0-2.8); Alkaline Phosphatase 82 U/L (38-126); Aspartate Aminotransferase 26 IU/L (14-36); BUN Creatinine Ratio 26.7 (6-22); Bilirubin Total 0.5 mg/dL (0.2-1.3); Blood Urea Nitrogen 23 mg/dL (7-17); Calcium 9.5 mg/dL (8.4-10.2); Carbon Dioxide 30 mmol/L (22-32); Chloride 101 mmol/L (98-107); Estimated Glomerular Filt Rate > 60 mL/min (>60); Globulin 2.7 g/dL (1.7-4.1); Glucose 98 mg/dL (80-110); HEMOLYSIS < 15 (0-50); Potassium 4.3 mmol/L (3.4-5.1); Sodium 139 mmol/L (137-145); Total Protein 6.7 g/dL (6.3-8.2)
[2022-09-02 16:54] LABS: TSH w/ Reflex to FT4 1.48 uIU/mL (0.47-4.68)
== END ==
PROVIDERS: PCP Nurse Practitioner; Referring Provider Family Medicine; Visit Provider Family Medicine
DX: R63.4 Abnormal weight loss (principal); Z85.528 Personal history of other malignant neoplasm of kidney
CPT/HCPCS: 36415; 80053; 83036; 84443; 85025

== ENCOUNTER → 2023-05-09 | Outpatient (CLI) | payer MEDICARE, SELFPAY ==
--- NOTE | 2023-05-09 14:27 | DI.RAD.S_ITS ---
Bone Density Report Name: LAN HESTER Age: 87 Sex: Female Ethnicity: White Date of : 1935 Indication: postmenopausal osteoporosis; monitoring treatment; Referring Provider: MANDY CAST Study: Bone densitometry was performed. Exam Date: May 09, 2023 Accession number: [id number] Bone Density: Region BMD T-score Z-score Classification AP Spine(L1-L4) 1.236 1.7 4.6 Normal Femoral Neck (Left) 0.653 -1.8 0.8 Osteopenia Total Hip (Left) 0.711 -1.9 0.4 Osteopenia Femoral Neck (Right) 0.568 -2.5 0.0 Osteoporosis Total Hip (Right) 0.667 -2.3 0.1 Osteopenia Total Hip Mean 0.689 -2.1 0.3 Osteopenia World Health Organization criteria for BMD impression classify patients as: Normal (T-score at or above -1.0), Osteopenia (T-score between -1.0 and -2.5), or Osteoporosis (T-score at or below -2.5). 10-year Fracture Risk: FRAX not reported because: Some T-score for Spine Total or Hip Total or Femoral Neck at or below -2.5 Treated for osteoporosis Previous Exams: -- Region Exam Age BMD T-score BMD Change BMD Change Date g/cm2 vs Baseline vs Previous -- AP Spine (L1-L4) 05/09/2023 87 1.236 1.7 0.074 (6.4%)# 0.074 (6.4%)# 03/18/2021 85 1.162 1.0 Total Hip(Left) 05/09/2023 87 0.711 -1.9 0.034 (4.9%)# 0.034 (4.9%)# 03/18/2021 85 0.677 -2.2 Total Hip(Right) 05/09/2023 87 0.667 -2.3 0.026 (4.0%)# 0.026 (4.0%)# 03/18/2021 85 0.642 -2.5 -- *Denotes significance at 95% confidence level, LSC for AP Spine = 0.022 g/cm2, LSC for Total Hip = 0.027 g/cm2 # Denotes dissimilar scan types or analysis methods Impression: The patient has osteoporosis, based on the Right Femoral Neck T-score. No significant bone loss was observed. Discussion: PATIENT UNDER TREATMENT WITH NO SIGNIFICANT BMD LOSS SINCE LAST EXAM. In an untreated patient, BMD typically declines with age. A lack of decline or gain is usually a sign that treatment is efficacious and fracture risk is reduced. It is important to ask patients whether they are taking their medications and to encourage continued and appropriate compliance with their osteoporosis therapies to reduce fracture risk. It is also important to review their risk factors and encourage appropriate calcium and vitamin D intakes, exercise, fall prevention and other lifestyle measures. Follow-Up: Consider a repeat BMD and Vertebral Fracture Assessment (VFA) exam in 2 years or sooner if medically necessary, to reassess this patient's status. Reported by: KRISHNA RODRIGUEZ M.D. on 05/09/2023 3:15:00 PM.
== END ==
PROVIDERS: PCP Nurse Practitioner; Referring Provider Nurse Practitioner; Visit Provider Nurse Practitioner
DX: M81.0 Age-related osteoporosis without current pathological fracture (principal); M06.9 Rheumatoid arthritis, unspecified
CPT/HCPCS: 77080

== ENCOUNTER → 2024-01-04 09:33 | Outpatient (CLI) | payer MEDICARE, SELFPAY ==
[2024-01-04 11:06] LABS: Alanine Aminotransferase 31 IU/L (<35); Albumin 4.5 g/dL (3.5-5.0); Albumin Globulin Ratio 1.7 (1.0-2.8); Alkaline Phosphatase 115 U/L (38-126); Aspartate Aminotransferase 30 IU/L (14-36); BUN Creatinine Ratio 27.3 (6-22); Bilirubin Total 1.1 mg/dL (0.2-1.3); Blood Urea Nitrogen 24 mg/dL (7-17); Carbon Dioxide 29 mmol/L (22-32); Chloride 102 mmol/L (98-107); Cholesterol 207 mg/dL (140-199); Estimated Glomerular Filt Rate > 60 mL/min (>60); Globulin 2.7 g/dL (1.7-4.1); Glucose 100 mg/dL (80-110); HDL Cholesterol 61 mg/dL (40-60); HEMOLYSIS < 15 (0-50); LDL Cholesterol Calculated 122 mg/dL (<100); Potassium 4.6 mmol/L (3.4-5.1); Sodium 138 mmol/L (137-145); Total Protein 7.2 g/dL (6.3-8.2); Triglycerides 120 mg/dL (35-150)
[2024-01-04 11:12] LABS: Creatinine Urine Random 71.2 mg/dL
[2024-01-04 11:16] LABS: Microalbumi Creatinin Ratio Ur 18.2 ug/mg CR (<30); Microalbumin Urine Random 1.3 mg/dL (0-1.6)
[2024-01-04 11:25] LABS: Free T3, Triiodothyronine Free 4.47 pg/mL (2.77-5.27); Free T4, Direct Thyroxine 1.41 ng/dL (0.78-2.19)
[2024-01-04 11:38] LABS: Thyroid Stimulating Hormone 0.541 uIU/mL (0.47-4.68)
== END ==
PROVIDERS: PCP Nurse Practitioner; Referring Provider Nurse Practitioner; Visit Provider Nurse Practitioner
DX: M81.0 Age-related osteoporosis without current pathological fracture (principal); I10 Essential (primary) hypertension; E78.5 Hyperlipidemia, unspecified; Z85.528 Personal history of other malignant neoplasm of kidney; Z79.899 Other long term (current) drug therapy
CPT/HCPCS: 36415; 80053; 80061; 82043; 82570; 84439; 84443; 84481

== ENCOUNTER → 2025-01-27 11:44 | Outpatient (CLI) | payer MEDICARE, SELFPAY ==
[2025-01-27 12:39] LABS: Add Manual Diff / Slide Review NO; Basophils Absolute Auto 0 /uL (0-100); Basophils Percent Auto 0.5 % (0-2); Eosinophils Absolute Auto 100 /uL (0-450); Eosinophils Percent Auto 0.9 % (2-4); Hematocrit 43.6 % (36-46); Hemoglobin 14.7 g/dL (12.0-16.0); Lymphocytes Absolute Auto 1400 /uL (1100-4500); Lymphocytes Percent Auto 21.4 % (25-40); Mean Corpuscular HGB Conc 33.8 % (30-36); Mean Corpuscular Volume 94.8 fL (80-100); Monocytes Absolute Auto 600 /uL (0-900); Monocytes Percent Auto 8.8 % (3-14); Neutrophils Absolute Auto 4600 /uL (1500-7000); Neutrophils Percent Auto 68.4 % (50-75); Platelet Count 190 X10^3/uL (150-400); Red Cell Distribution Width 13.7 % (11.6-14.8); White Blood Cell Count 6.7 X10^3/uL (4.5-11.0)
[2025-01-27 12:52] LABS: Alanine Aminotransferase 34 IU/L (<35); Albumin 4.5 g/dL (3.5-5.0); Albumin Globulin Ratio 1.8 (1.0-2.8); Alkaline Phosphatase 96 U/L (38-126); Aspartate Aminotransferase 37 IU/L (14-36); BUN Creatinine Ratio 22.9 (6-22); Bilirubin Total 0.8 mg/dL (0.2-1.3); Blood Urea Nitrogen 22 mg/dL (7-17); Calcium 10.5 mg/dL (8.4-10.2); Carbon Dioxide 33 mmol/L (22-32); Chloride 102 mmol/L (98-107); Cholesterol 188 mg/dL (140-199); Estimated Glomerular Filt Rate 57 mL/min (>60); Globulin 2.5 g/dL (1.7-4.1); Glucose 102 mg/dL (70-99); HDL Cholesterol 61 mg/dL (40-60); HEMOLYSIS < 15 (0-50); LDL Cholesterol Calculated 103 mg/dL (<100); Sodium 140 mmol/L (137-145); Triglycerides 120 mg/dL (35-150)
== END ==
PROVIDERS: PCP Family Medicine; Referring Provider Family Medicine; Visit Provider Family Medicine
DX: E78.5 Hyperlipidemia, unspecified (principal); I10 Essential (primary) hypertension
CPT/HCPCS: 36415; 80053; 80061; 85025

== ENCOUNTER → 2025-07-31 10:43 | Outpatient (CLI) | payer MEDICARE, SELFPAY ==
[2025-07-31 11:13] LABS: Add Manual Diff / Slide Review NO; Hematocrit 44.4 % (36-46); Hemoglobin 14.8 g/dL (12.0-16.0); Lymphocytes Absolute Auto 1100 /uL (1100-4500); Mean Corpuscular HGB Conc 33.5 % (30-36); Mean Corpuscular Hemoglobin 30.9 PG (26-34); Mean Corpuscular Volume 92.3 fL (80-100); Platelet Count 182 X10^3/uL (150-400)
[2025-07-31 11:33] LABS: Alanine Aminotransferase 26 IU/L (<35); Albumin 4.4 g/dL (3.5-5.0); Albumin Globulin Ratio 1.6 (1.0-2.8); Alkaline Phosphatase 92 U/L (38-126); Blood Urea Nitrogen 21 mg/dL (7-17); Calcium 9.8 mg/dL (8.4-10.2); Carbon Dioxide 28 mmol/L (22-32); Chloride 103 mmol/L (98-107); Estimated Glomerular Filt Rate > 60 mL/min (>60); Globulin 2.7 g/dL (1.7-4.1); Glucose 95 mg/dL (70-99); HEMOLYSIS < 15 (0-50); Potassium 4.2 mmol/L (3.4-5.1); Sodium 141 mmol/L (137-145); Total Protein 7.1 g/dL (6.3-8.2)
[2025-07-31 15:23] LABS: Vitamin D 25 Hydroxy (D3) 58.2 ng/mL (30.0-100.0)
== END ==
PROVIDERS: PCP Family Medicine; Referring Provider Family Medicine; Visit Provider Family Medicine
DX: E83.52 Hypercalcemia (principal); R35.89 Other polyuria; E86.0 Dehydration; N28.9 Disorder of kidney and ureter, unspecified; M85.80 Other specified disorders of bone density and structure, unspecified site; M19.09 Primary osteoarthritis, other specified site
CPT/HCPCS: 36415; 80053; 82306; 82310; 83970; 85025